=== PATIENT | male | born 1975 | race Caucasian/White ===

== ENCOUNTER 2016-09-13 05:39 | Emergency (ER) | payer OTHER ==
[~2016-09-13 05:39] MED LIST: (NONE)120 M1 PO; ASPIRIN81 M2 PO; LEVOTHYROXINE25 MC1 PO; LEVOXYL200 MCG PO; LISINOPRIL10 MG PO; LISINOPRIL2.5 MG PO; METFORMIN HCL500 M1 PO; MULTIPLE VITAMI1 T11 PO; OMEPRAZOLE40 M1 PO; PRAVACHOL80 MG PO; SYNTHROID0.2 MG PO; VERAPAMIL ER240 M1 PO
== END 2016-09-13 07:47 | disposition home or self-care (01) ==
LOC: CED 05:39
DX: L02.31 Cutaneous abscess of buttock (principal); I10 Essential (primary) hypertension; E78.5 Hyperlipidemia, unspecified; E11.9 Type 2 diabetes mellitus without complications; E03.9 Hypothyroidism, unspecified; F17.200 Nicotine dependence, unspecified, uncomplicated; Z90.49 Acquired absence of other specified parts of digestive tract
CPT/HCPCS: 10060; 36415; 51701; 82947; 96361; 96365; 96375; 99284; J1170